=== PATIENT | male | born 1945 | race Caucasian/White ===

== ENCOUNTER 2016-08-13 10:00 | Emergency (ER) | payer MEDICARE, BC ==
[2016-08-13 10:04] VITALS: BP 146/86
--- NOTE | 2016-08-13 10:20 | ER Document Report ---
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 IN LAST 30 DAYS: No - Related Data Allergies/Adverse Reactions: No Known Allergies Allergy (Verified 05/24/14 07:53) Past Medical History - General Information source: Patient - Social History Smoking Status: Never Smoker Cigarette use (# per day): No Family History: Reviewed & Not Pertinent Patient has suicidal ideation: No Patient has homicidal ideation: No - Past Medical History Cardiac Medical History: Reports: Hx Hypertension Renal/ Medical History: Reports: Hx Kidney Stones. Denies: Hx Peritoneal Dialysis GI Medical History: Reports: Hx Gastroesophageal Reflux Disease Past Surgical History: Reports: Hx Abdominal Surgery - umbilical hernia - Immunizations Hx Diphtheria, Pertussis, Tetanus Vaccination: Yes Review of Systems - Review of Systems Constitutional: No symptoms reported EENT: No symptoms reported Cardiovascular: No symptoms reported Respiratory: No symptoms reported Gastrointestinal: No symptoms reported Genitourinary: No symptoms reported Male Genitourinary: No symptoms reported Musculoskeletal: No symptoms reported Skin: No symptoms reported Hematologic/Lymphatic: No symptoms reported Neurological/Psychological: No symptoms reported Physical Exam - Vital signs Vitals: Temp Pulse Resp BP Pulse Ox 97.8 F 63 16 146/86 H 98 08/13/16 10:02 08/13/16 10:02 08/13/16 10:02 08/13/16 10:02 08/13/16 10:02 Interpretation: Normal - General General appearance: Appears well, Alert - HEENT Head: Normocephalic, Atraumatic Eyes: Normal Pupils: PERRL Ears: Pinna tenderness External canal: Other - Left TM erythemic and excoriated. - Respiratory Respiratory status: No respiratory distress Chest status: Nontender Breath sounds: Normal Chest palpation: Normal - Cardiovascular Rhythm: Regular Heart sounds: Normal auscultation Murmur: No - Abdominal Inspection: Normal Distension: No distension Bowel sounds: Normal Tenderness: Nontender Organomegaly: No organomegaly - Back Back: Normal, Nontender - Extremities General upper extremity: Normal inspection, Nontender, Normal color, Normal ROM , Normal temperature General lower extremity: Normal inspection, Nontender, Normal color, Normal ROM , Normal temperature, Normal weight bearing. No: Von's sign - Neurological Neuro grossly intact: Yes Cognition: Normal Orientation: AAOx4 [place] Coma Scale Eye Opening: Spontaneous [place] Coma Scale Verbal: Oriented [place] Coma Scale Motor: Obeys Commands Koffi Coma Scale Total: 15 Speech: Normal Motor strength normal: LUE, RUE, LLE, RLE Sensory: Normal - Psychological Associated symptoms: Normal affect, Normal mood - Skin Skin Temperature: Warm Skin Moisture: Dry Skin Color: Normal Course - Vital Signs Vital signs: Temp Pulse Resp BP Pulse Ox 97.8 F 63 16 146/86 H 98 08/13/16 10:02 08/13/16 10:02 08/13/16 10:02 08/13/16 10:02 08/13/16 10:02 Discharge - Discharge Clinical Impression: Otitis externa Qualifiers: Otitis externa type: diffuse Laterality: left Chronicity: acute Qualified Code( s): H60.312 - Diffuse otitis externa, left ear Disposition: HOME, SELF-CARE Instructions: Use of Ear Drops ([facility]), Otitis Externa ([facility]) Additional Instructions: Otitis Externa You have otitis externa -- an infection of the outer ear canal. This can be very painful. It's sometimes called "swimmer's ear," because it often occurs after prolonged water exposure. Many things, such as earwax and dirt in the ear, can contribute to it. The usual treatment is antibiotic/antiinflammatory ear drops. Occasionally , a wick will be placed in the ear to draw in the medicine. If the infection is severe, an oral antibiotic may be prescribed. Pain medication is often needed. Avoid getting water in the ear. Outer ear infections often take longer to heal than you might expect. Some tenderness and ache in the ear may persist for about two weeks. See your physician if you fail to improve as expected. Call the doctor at once if you develop fever, increasing swelling (particularly if it makes your ear "poke out"), severe headache, stiff neck, or decreased hearing. Prescriptions: Ciprofloxacin HCl/Dexameth [Ciprodex Otic Suspension 7.5 ml Bottle] 4 drop OT BID #1 bottle
[2016-08-13] MEDS ORDERED: DEXAMETHASONE SOD PHOS INJ 10 MG/1 ML VIAL IM ONE (10:21)
[2016-08-13] MEDS ORDERED: METHYLPREDNISOLONE ACETATE INJ 40 MG/1 ML ML IM ONE (10:21)
== END 2016-08-13 10:57 | disposition home or self-care (01) ==
LOC: ER 10:00
DX: H60.312 Diffuse otitis externa, left ear (principal); H92.02 Otalgia, left ear
CPT/HCPCS: 99282; 96372; J1020; J1100

== ENCOUNTER → 2016-08-23 | Outpatient (CLI) | payer MEDICARE, BC | LOC: OD 07:09 | PROVIDERS: ATTEND Otolaryngology | DX: J06.9 Acute upper respiratory infection, unspecified (principal) | CPT/HCPCS: 36415; 85652 ==

== ENCOUNTER → 2017-02-15 | Outpatient (CLI) | payer MEDICARE, BC ==
[2017-02-15 08:59] LABS: ABSOLUTE BASOPHILS # (AUTO) 0.1 10^3/uL (0.0-0.2); ABSOLUTE EOSINOPHILS # (AUTO) 0.2 10^3/uL (0.0-0.6); ABSOLUTE LYMPHOCYTES (AUTO) 1.9 10^3/uL (0.5-4.7); ABSOLUTE MONOCYTES (AUTO) 0.7 10^3/uL (0.1-1.4); ABSOLUTE NEUT (AUTO) 4.5 10^3/uL (1.7-8.2); BASOPHILS % (AUTO) 0.7 % (0-2); EOSINOPHILS % (AUTO) 2.5 % (0-6); HEMOGLOBIN 15.3 g/dL (13.5-17.0); HGB HCT DIFFERENCE 0.9; LYMPHOCYTES % (AUTO) 25.5 % (13-45); MEAN CORPUSCULAR HEMOGLOBIN 29.1 pg (27.0-33.4); MEAN CORPUSCULAR HGB CONC 34.1 g/dL (32.0-36.0); MEAN CORPUSCULAR VOLUME 85 fl (80-97); MONOCYTES % (AUTO) 9.9 % (3-13); RED BLOOD COUNT 5.27 10^6/uL (4.35-5.55); RED CELL DISTRIBUTION WIDTH 13.9 % (11.5-14.0); SEGMENTED NEUTROPHILS % (AUTO) 61.4 % (42-78); WHITE BLOOD COUNT 7.3 10^3/uL (4.0-10.5)
[2017-02-15 09:26] LABS: ALANINE AMINOTRANSFERASE 85 U/L (21-72); ALBUMIN 4.4 g/dL (3.5-5.0); ALKALINE PHOSPHATASE 45 U/L (38-126); ANION GAP 14 (5-19); ASPARTATE AMINO TRANSFERASE 39 U/L (17-59); BILIRUBIN,DIRECT 0.3 mg/dL (0.0-0.4); BILIRUBIN,TOTAL 0.6 mg/dL (0.2-1.3); BLOOD UREA NITROGEN 32 mg/dL (7-20); CARBON DIOXIDE 27 mmol/L (22-30); CHLORIDE 108 mmol/L (98-107); CHOLESTEROL 197.11 mg/dL (0-200); CREATININE RESULT 1.22 mg/dL (0.52-1.25); Direct HDL 40 mg/dL (>40); GLUCOSE 97 mg/dL (75-110); POTASSIUM 4.8 mmol/L (3.6-5.0); SODIUM 148.7 mmol/L (137-145); TOTAL PROTEIN 6.9 g/dL (6.3-8.2); TRIGLYCERIDES 140 mg/dL (<150)
[2017-02-15 09:31] LABS: CALCIUM 9.6 mg/dL (8.4-10.2)
[2017-02-15 09:37] LABS: DIRECT LDL 144 mg/dL (<100)
== END ==
LOC: OD 08:10
PROVIDERS: ATTEND Internal Medicine
DX: K21.0 Gastro-esophageal reflux disease with esophagitis (principal); E78.5 Hyperlipidemia, unspecified; R35.1 Nocturia; R53.83 Other fatigue
CPT/HCPCS: 36415; 80053; 80061; 84153; 84443; 85025

== ENCOUNTER 2017-03-30 09:02 | Emergency (ER) | payer MEDICARE, BC ==
--- NOTE | 2017-03-30 09:56 | ER Document Report ---
ED Medical Screen (RME) - General Chief Complaint: Ear Pain Stated Complaint: HEADACHE AND EARACHE Time Seen by Provider: 03/30/17 09:24 Mode of Arrival: Ambulatory Information source: Patient Notes: 71-year-old male presents to ED for complaint of excruciating headache at 1 AM this morning with a temperature of 101 pain down his neck. States he took some aspirin and was able to fall back to sleep but at 5 AM he had an excruciating headache with fever and ear pain and took Tylenol afebrile in the emergency room but he does still have a headache and pressure in the back of his neck. He states he also has left ear pain that he has had off and on for a while and his ENT told him that it might be because his bone is too close to the surface of his ear canal. He is a former smoker does not drink alcohol no use of drugs. He is alert and oriented able to speak in full sentences lungs clear to auscultation. I have greeted and performed a rapid initial assessment of this patient. A comprehensive ED assessment and evaluation of the patient, analysis of test results and completion of medical decision making process will be conducted by an additional ED providers. TRAVEL OUTSIDE OF THE [place] IN LAST 30 DAYS: No - Related Data Allergies/Adverse Reactions: No Known Allergies Allergy (Verified 08/13/16 10:54) Past Medical History - Social History Cigarette use (# per day): No Chew tobacco use (# tins/day): No Frequency of alcohol use: None Drug Abuse: None Occupation: Retired Lives with: Family Family history: Arthritis - Rheumatoid arthritis, CAD, DM, Hyperlipidemia, Hypertension. denies: CVA, Malignancy, Thyroid Disfunction - Past Medical History Cardiac Medical History: Reports: Hx Hypercholesterolemia, Hx Hypertension Pulmonary Medical History: Reports: Hx Bronchitis, Hx Pneumonia EENT Medical History: Reports: None Neurological Medical History: Reports: None Endocrine Medical History: Reports: None Renal/ Medical History: Reports: Hx Benign Prostatic Hyperplasia, Hx Kidney Stones Malignancy Medical History: Reports None GI Medical History: Reports: Hx Gastroesophageal Reflux Disease, Hx Colonoscopy , Hx Endoscopy Musculoskeltal Medical History: Reports Hx Arthritis, Reports Hx Musculoskeletal Deformity - Bursitis right hip Skin Medical History: Reports None Psychiatric Medical History: Reports: None Traumatic Medical History: Reports: None Infectious Medical History: Reports: None Past Surgical History: Reports: Hx Genitourinary Surgery - Prostate trimmed but not removed due to BPH, Hx Inguinal Hernia, Hx Nose Surgery, Other - Detached retina, varicose vein rt arm removed due to bleeding, - Immunizations Hx Diphtheria, Pertussis, Tetanus Vaccination: Yes Physical Exam - HEENT Head: Normocephalic, Atraumatic Eyes: Normal Pupils: PERRL Ears: Normal External canal: Normal Tympanic membrane: Normal Sinus: Normal Nasal: Purulent discharge, Swelling Mouth/Lips: Normal Pharynx: Post nasal drainage Neck: Normal, Other - Lower neck states he feels pressure when touched
--- NOTE | 2017-03-30 10:30 | ER Document Report ---
ED General - General Chief Complaint: Ear Pain Stated Complaint: HEADACHE AND EARACHE Time Seen by Provider: 03/30/17 09:24 Mode of Arrival: Ambulatory Information source: Patient Notes: Patient is a 71-year-old male who presents today with what he states is around 3 months of some intermittent left ear pain and headaches. He states that the headache usually follows the ear pain. He has seen his primary care physician as well as an ENT. Patient states that the headaches also seem to come on after looking at his iPad. He states that the headache is in the front and back of his head. He denies any blurry vision, temporal pain, weakness or tiredness with chewing. Patient did have a low-grade fever last night. He has not taken antipyretics in greater than 6 hours. He does state some nasal congestion but denies cough, neck pain, sore throat, rash, or dysuria. He denies any weakness or numbness. Patient currently denies any pain to his head or his ear at this time. Patient has further ENT study follow-up coming this week. TRAVEL OUTSIDE OF THE [place] IN LAST 30 DAYS: No - HPI Onset: Other - See above Onset/Duration: Gradual Quality of pain: Achy Severity: Moderate Pain Level: Denies Associated symptoms: Other - See above Exacerbated by: Other - See above Relieved by: Denies Similar symptoms previously: Yes Recently seen / treated by doctor: Yes - Related Data Allergies/Adverse Reactions: No Known Allergies Allergy (Verified 08/13/16 10:54) Past Medical History - General Information source: Patient - Social History Smoking Status: Never Smoker Cigarette use (# per day): No Chew tobacco use (# tins/day): No Smoking Education Provided: No Frequency of alcohol use: None Drug Abuse: None Occupation: Retired Lives with: Family Family History: Reviewed & Not Pertinent Patient has suicidal ideation: No Patient has homicidal ideation: No - Past Medical History Cardiac Medical History: Reports: Hx Hypercholesterolemia, Hx Hypertension Pulmonary Medical History: Reports: Hx Bronchitis, Hx Pneumonia EENT Medical History: Reports: None Neurological Medical History: Reports: None Endocrine Medical History: Reports: None Renal/ Medical History: Reports: Hx Benign Prostatic Hyperplasia, Hx Kidney Stones. Denies: Hx Peritoneal Dialysis Malignancy Medical History: Reports None GI Medical History: Reports: Hx Gastroesophageal Reflux Disease, Hx Colonoscopy , Hx Endoscopy Musculoskeltal Medical History: Reports Hx Arthritis, Reports Hx Musculoskeletal Deformity - Bursitis right hip Skin Medical History: Reports None Psychiatric Medical History: Reports: None Traumatic Medical History: Reports: None Infectious Medical History: Reports: None Past Surgical History: Reports: Hx Abdominal Surgery - umbilical hernia, Hx Genitourinary Surgery - Prostate trimmed but not removed due to BPH, Hx Inguinal Hernia, Hx Nose Surgery, Other - Detached retina, varicose vein rt arm removed due to bleeding, - Immunizations Hx Diphtheria, Pertussis, Tetanus Vaccination: Yes Review of Systems - Review of Systems Constitutional: Fever EENT: Nose congestion, Sinus pressure. denies: Eye discharge, Double vision, Nose discharge, Sinus discharge, Throat swelling, Mouth pain Cardiovascular: denies: Chest pain Respiratory: denies: Short of breath Gastrointestinal: denies: Vomiting Genitourinary: denies: Dysuria Musculoskeletal: denies: Leg swelling Skin: Other - no hives. denies: Rash Neurological/Psychological: Other - no slurred speech -: Yes All other systems reviewed and negative Physical Exam - Vital signs Notes: Reviewed vital signs and nursing note as charted by RN. CONSTITUTIONAL: Alert and oriented and responds appropriately to questions. Well -appearing; well-nourished HEAD: Normocephalic; atraumatic EYES: PERRL ENT: Normal nose; no rhinorrhea; moist mucous membranes; pharynx without lesions noted; no mastoid tenderness or swelling; no external auditory canal lesions; left tympanic membrane does have an effusion with no loss of landmarks , erythema, or bulging present. No temporal erythema or tenderness NECK: Supple without meningismus; non-tender; no cervical lymphadenopathy, no masses CARD: Regular rate and rhythm; no murmurs EXT: Normal ROM in all joints; non-tender to palpation; no edema SKIN: No acute lesions noted NEURO: CN II through XII are intact. Patient has 5 out of 5 bilateral upper and lower extremity strength with sensation intact to light touch PSYCH: The patient's mood and manner are appropriate. Grooming and personal hygiene are appropriate. Course - Re-evaluation Re-evalutation: 03/30/17 10:29 Given the history, physical, no focal neurological deficits, currently no pain, I believe acute bacterial meningitis, subarachnoid hemorrhage, temporal arteritis, acute angle-closure glaucoma, acute CVA, mastoiditis, all to be extremely unlikely. Given that the patient has never had any imaging with his chronic intermittent left ear and headache pain, I will obtain a baseline CT scan of the head. 03/30/17 11:25 CT scan as recorded. Patient still denies any pain to the head or ear at this time. Vital signs are stable. Given that the patient has had a fever last evening with a CT scan showing possibly acute sinusitis, I will treat the patient with a course of antibiotics with strict return precautions and follow- up with the primary doctor. Other CT findings appear to be chronic. Patient will be discharged home with strict return precautions and follow-up with the primary doctor and ENT. - Laboratory Result Diagrams: 03/30/17 10:00 03/30/17 10:00 Laboratory results interpreted by me: 03/30/17 10:00 WBC 12.0 H RDW 14.1 H Seg Neutrophils % 86.6 H Lymphocytes % 6.3 L Absolute Neutrophils 10.4 H Discharge - Discharge Clinical Impression: Headache Qualifiers: Headache type: unspecified Headache chronicity pattern: acute headache Intractability: not intractable Qualified Code(s): R51 - Headache Acute sinusitis Qualifiers: Sinusitis location: maxillary Recurrence: non-recurrent Qualified Code(s): J01.00 - Acute maxillary sinusitis, unspecified Condition: Good Disposition: HOME, SELF-CARE Additional Instructions: Come back immediately with any increased pain, return of fevers, weakness or numbness, blurry vision, or any other acute problems. Please follow-up with your primary care physician as we have discussed. Prescriptions: Amox Tr/Potassium Clavulanate [Augmentin 875-125 Tablet] 1 tab PO BID 10 Days tablet Levofloxacin 750 mg PO DAILY #5 tablet Referrals: STEPHANIE AQUINO MD [Primary Care Provider] - Follow up as needed
[2017-03-30 10:35] LABS: ABSOLUTE BASOPHILS # (AUTO) 0.1 10^3/uL (0.0-0.2); ABSOLUTE EOSINOPHILS # (AUTO) 0.1 10^3/uL (0.0-0.6); ABSOLUTE LYMPHOCYTES (AUTO) 0.8 10^3/uL (0.5-4.7); ABSOLUTE MONOCYTES (AUTO) 0.7 10^3/uL (0.1-1.4); ABSOLUTE NEUT (AUTO) 10.4 10^3/uL (1.7-8.2); BASOPHILS % (AUTO) 0.4 % (0-2); EOSINOPHILS % (AUTO) 1.2 % (0-6); HEMATOCRIT 44.6 % (37.9-51.0); HEMOGLOBIN 14.8 g/dL (13.5-17.0); LYMPHOCYTES % (AUTO) 6.3 % (13-45); MEAN CORPUSCULAR HEMOGLOBIN 28.4 pg (27.0-33.4); MEAN CORPUSCULAR HGB CONC 33.2 g/dL (32.0-36.0); MEAN CORPUSCULAR VOLUME 86 fl (80-97); MONOCYTES % (AUTO) 5.5 % (3-13); PLATELET COUNT 178 10^3/uL (150-450); RED BLOOD COUNT 5.22 10^6/uL (4.35-5.55); RED CELL DISTRIBUTION WIDTH 14.1 % (11.5-14.0); SEGMENTED NEUTROPHILS % (AUTO) 86.6 % (42-78); TOTAL CELLS COUNTED % (AUTO) 100 %
[2017-03-30 10:52] LABS: A TYPE INFLUENZA AG NEGATIVE (NEGATIVE); B INFLUENZA AG NEGATIVE (NEGATIVE)
[2017-03-30 10:59] LABS: ALANINE AMINOTRANSFERASE 65 U/L (21-72); ALBUMIN 4.2 g/dL (3.5-5.0); ALKALINE PHOSPHATASE 38 U/L (38-126); ANION GAP 14 (5-19); ASPARTATE AMINO TRANSFERASE 29 U/L (17-59); BILIRUBIN,DIRECT 0.2 mg/dL (0.0-0.4); BLOOD UREA NITROGEN 19 mg/dL (7-20); CALCIUM 9.6 mg/dL (8.4-10.2); CARBON DIOXIDE 25 mmol/L (22-30); CHLORIDE 105 mmol/L (98-107); GLUCOSE 90 mg/dL (75-110); POTASSIUM 4.2 mmol/L (3.6-5.0); SODIUM 143.7 mmol/L (137-145); TOTAL PROTEIN 6.6 g/dL (6.3-8.2)
--- NOTE | 2017-03-30 11:20 | RADIOLOGY REPORT (SQ) ---
EXAM DESCRIPTION: CT HEAD WITHOUT COMPLETED DATE/TIME: 03/30/2017 10:41 am REASON FOR STUDY: 39, intermittent headaches and left ear pain COMPARISON: None. TECHNIQUE: Axial images acquired through the brain without intravenous contrast. Images reviewed wi th bone, brain and subdural windows. Images stored on PACS. All CT scanners at this facility use dose modulation, iterative reconstruction, and/or weight based d osing when appropriate to reduce radiation dose to as low as reasonably achievable (ALARA). [facility]: Dose Right [facility]: CareDose [facility]: Dose Right [facility]: Teradose 4D [facility]: [employer] RADIATION DOSE: CT Rad equipment meets quality standard of care and radiation dose reduction techniq ues were employed. CTDIvol: 64.6 mGy. DLP: 1034 mGy-cm. mGy. LIMITATIONS: None. FINDINGS: VENTRICLES: Normal size and contour. CEREBRUM: There is of focal area of decreased attenuation left basal ganglion region. The possibilit y of prominent Virchow Richie space versus old infarct must be considered. Otherwise ,intracranially, no abnormal areas of increased or decreased attenuation noted. No mass effect or shift. CEREBELLUM: No masses. No hemorrhage. No alteration of density. No evidence for acute infarction. EXTRAAXIAL SPACES: No fluid collections. No masses. ORBITS AND GLOBE: No intra- or extraconal masses. Findings compatible with scleral buckle surroundin g anterior globe right eye. CALVARIUM: The internal auditory canals and mastoid processes demonstrate no abnormality. PARANASAL SINUSES: There is evidence of mucosal thickening within the maxillary antra left greater th an right with changes of fluid level in the left maxillary antrum. The possibility of acute superimp osed on chronic sinusitis must be considered. Minimal mucosal thickening in the frontal sinuses. SOFT TISSUES: No mass or hematoma. IMPRESSION: Focal area decreased attenuation right basal ganglion region. Prominent Virchow Richie s pace versus old infarct must be considered. Acute/chronic maxillary sinusitis. Chronic bilateral fr ontal sinusitis EVIDENCE OF ACUTE STROKE: NO. COMMENT: Quality ID # [id number]: Final reports with documentation of one or more dose reduction techniques (e.g., Automated exposure control, adjustment of the mA and/or kV according to patient size, use of iterative reconstruction technique) TECHNICAL DOCUMENTATION: JOB ID: [id number] [employer]- All Rights Reserved
[2017-03-30] MEDS ORDERED: LEVOFLOXACIN 750 MG TABLET PO ONE (11:35)
[2017-03-30 12:02] VITALS: BP 136/69
== END 2017-03-30 11:59 | disposition home or self-care (01) ==
LOC: ER 09:02
DX: J01.00 Acute maxillary sinusitis, unspecified (principal); I10 Essential (primary) hypertension; R51 Headache
CPT/HCPCS: 99283; 36415; 85025; 80053; 87804; 70450; A9270

== ENCOUNTER → 2018-05-06 | Outpatient (CLI) | payer MEDICARE, BC ==
[2018-05-06 10:35] LABS: ALANINE AMINOTRANSFERASE 61 U/L (21-72); ALBUMIN 4.5 g/dL (3.5-5.0); ALKALINE PHOSPHATASE 57 U/L (38-126); ASPARTATE AMINO TRANSFERASE 42 U/L (17-59); BILIRUBIN,DIRECT 0.3 mg/dL (0.0-0.4); BILIRUBIN,TOTAL 0.8 mg/dL (0.2-1.3); CHOLESTEROL 173.65 mg/dL (0-200); TOTAL PROTEIN 6.7 g/dL (6.3-8.2); TRIGLYCERIDES 189 mg/dL (<150)
[2018-05-06 10:59] LABS: DIRECT LDL 121 mg/dL (<100)
[2018-05-06 11:02] LABS: VLDL CHOLESTEROL 37.8 mg/dL (10-31)
== END ==
LOC: OD 07:16
PROVIDERS: ATTEND Internal Medicine
DX: E78.5 Hyperlipidemia, unspecified (principal); Z79.899 Other long term (current) drug therapy
CPT/HCPCS: 36415; 80061; 80076

== ENCOUNTER → 2018-05-06 | Outpatient (CLI) | payer MEDICARE, BC ==
--- NOTE | 2018-05-06 09:34 | RADIOLOGY REPORT (SQ) ---
EXAM DESCRIPTION: MRA HEAD WITHOUT COMPLETED DATE/TIME: 05/06/2018 8:51 am REASON FOR STUDY: BRAIN ANEURYSM, NON RUPTURED (I67.1) I67.1 CEREBRAL ANEURYSM, NONRUPTURED COMPARISON: None. TECHNIQUE: Axial 3-D momm-bg-cbrwry acquisition imaging performed through the brain in the area of t he [place]. Images reformatted using 3-D MIPS. LIMITATIONS: None. FINDINGS: SOURCE IMAGES: No unexpected findings on source images. No large masses. 3-D MIP: The distal left vertebral artery is not visualized. There is incidental origin of the right and left posterior cerebral artery. No aneurysm. No occlusions. No significant stenosis. OTHER: No other significant finding. IMPRESSION: THE DISTAL LEFT VERTEBRAL ARTERY IS NOT VISUALIZED. THIS MAY BE DUE TO OCCLUSION OR A S MALL VESSEL. IF THERE IS CLINICAL CONCERN, FOLLOW-UP MRA OF THE NECK MAY BE CONSIDERED. OTHERWISE U NREMARKABLE MRA OF THE [place]. TECHNICAL DOCUMENTATION: JOB ID: [id number] [employer]- All Rights Reserved Reading location - IP/workstation name: [email or web address]
== END ==
LOC: RAD 07:48
PROVIDERS: ATTEND Internal Medicine
DX: I67.1 Cerebral aneurysm, nonruptured (principal)
CPT/HCPCS: 70544

== ENCOUNTER → 2018-05-27 | Outpatient (CLI) | payer MEDICARE, BC ==
--- NOTE | 2018-05-27 09:52 | RADIOLOGY REPORT (SQ) ---
EXAM DESCRIPTION: MRA NECK WITHOUT COMPLETED DATE/TIME: 05/27/2018 8:52 am REASON FOR STUDY: VERTEBRAL ARTERY OCCLUSION, LEFT SIDE (I65.02) I65.09 OCCLUSION AND STENOSIS OF U NSPECIFIED VERTEBRAL ARTER I65.02 OCCLUSION AND STENOSIS OF LEFT VERTEBRAL ARTERY COMPARISON: MRA exam [place] 05/06/2018 CT angio neck 09/10/2012 CT brain 03/30/2017 TECHNIQUE: Axial 2-D volume acquisition imaging through the extracranial carotid and vertebral arter ies with reformatting using 3-D MIPS. LIMITATIONS: None. FINDINGS: Noncontrast MRA of the neck was performed including 2D and 3D twev-ye-osflat imaging. Melba rce data and maximum intensity projected images were reviewed and saved to pac's. Prior CT soft tiss ue neck 09/10/2012 and [place] MRA 10/17/1918 were also reviewed. The right vertebral artery is small throughout its course in the neck, and primarily ends in the righ t PICA at the skullbase. This is unchanged from the CT soft tissue neck 09/10/2012. This correlates with [place] imaging from 05/06/2018. Currently, no MR evidence for right vertebral artery d issection is present. Left vertebral artery is dominant, widely patent, providing in flow into the basilar artery. No left vertebral artery dissection. The bilateral common carotid artery, bilateral carotid bifurcations, and bilateral cervical internal carotid arteries are normal. IMPRESSION: NO SIGNIFICANT STENOSIS. COMMENT: Quality ID #[id number]: Measurements of distal internal carotid diameter were used as the denomin ator for stenosis measurement. TECHNICAL DOCUMENTATION: JOB ID: [id number] [email or web address]- All Rights Reserved Reading location - IP/workstation name: [email or web address]-
== END ==
LOC: RAD 08:00
PROVIDERS: ATTEND Internal Medicine
DX: I65.02 Occlusion and stenosis of left vertebral artery (principal)
CPT/HCPCS: 70547

== ENCOUNTER → 2018-07-05 | Outpatient (CLI) | payer MEDICARE, BC ==
[2018-07-05 12:28] LABS: ABSOLUTE EOSINOPHILS # (AUTO) 0.2 10^3/uL (0.0-0.6); ABSOLUTE LYMPHOCYTES (AUTO) 1.9 10^3/uL (0.5-4.7); ABSOLUTE MONOCYTES (AUTO) 0.6 10^3/uL (0.1-1.4); ABSOLUTE NEUT (AUTO) 4.6 10^3/uL (1.7-8.2); BASOPHILS % (AUTO) 0.6 % (0-2); EOSINOPHILS % (AUTO) 2.5 % (0-6); HEMATOCRIT 44.9 % (37.9-51.0); HEMOGLOBIN 15.4 g/dL (13.5-17.0); LYMPHOCYTES % (AUTO) 26.1 % (13-45); MEAN CORPUSCULAR HEMOGLOBIN 29.4 pg (27.0-33.4); MEAN CORPUSCULAR HGB CONC 34.3 g/dL (32.0-36.0); MEAN CORPUSCULAR VOLUME 86 fl (80-97); MONOCYTES % (AUTO) 7.9 % (3-13); PLATELET COUNT 181 10^3/uL (150-450); RED BLOOD COUNT 5.24 10^6/uL (4.35-5.55); RED CELL DISTRIBUTION WIDTH 13.7 % (11.5-14.0); SEGMENTED NEUTROPHILS % (AUTO) 62.9 % (42-78); TOTAL CELLS COUNTED % (AUTO) 100 %; WHITE BLOOD COUNT 7.3 10^3/uL (4.0-10.5)
[2018-07-05 12:35] LABS: ALANINE AMINOTRANSFERASE 61 U/L (21-72); ALBUMIN 4.3 g/dL (3.5-5.0); ALKALINE PHOSPHATASE 47 U/L (38-126); ANION GAP 10 (5-19); ASPARTATE AMINO TRANSFERASE 38 U/L (17-59); BILIRUBIN,DIRECT 0.3 mg/dL (0.0-0.4); BILIRUBIN,TOTAL 0.6 mg/dL (0.2-1.3); BLOOD UREA NITROGEN 25 mg/dL (7-20); CALCIUM 9.6 mg/dL (8.4-10.2); CARBON DIOXIDE 28 mmol/L (22-30); CHLORIDE 100 mmol/L (98-107); GLUCOSE 95 mg/dL (75-110); POTASSIUM 4.5 mmol/L (3.6-5.0); SODIUM 137.6 mmol/L (137-145); TOTAL PROTEIN 6.9 g/dL (6.3-8.2)
[2018-07-05 12:42] LABS: APPEARANCE,URINE CLEAR; BILIRUBIN,URINE NEGATIVE (NEGATIVE); COLOR,URINE YELLOW; GLUCOSE, URINE NEGATIVE (NEGATIVE); KETONES,URINE NEGATIVE (NEGATIVE); LEUKOCYTE ESTERASE,URINE SMALL (NEGATIVE); NITRITE,URINE NEGATIVE (NEGATIVE); PROTEIN,URINE NEGATIVE (NEGATIVE); URINE SPECIFIC GRAVITY 1.015; UROBILINOGEN,URINE NEGATIVE mg/dL (<2.0)
== END ==
LOC: OD 10:38
PROVIDERS: ATTEND Internal Medicine Nephrology
DX: I12.9 Hypertensive chronic kidney disease with stage 1 through stage 4 chronic kidney disease, or unspecified chronic kidney disease (principal); N18.2 Chronic kidney disease, stage 2 (mild); Q61.3 Polycystic kidney, unspecified
CPT/HCPCS: 36415; 80053; 81001; 85025

== ENCOUNTER → 2018-11-25 | Outpatient (CLI) | payer MEDICARE, BC ==
--- NOTE | 2018-11-25 08:49 | RADIOLOGY REPORT (SQ) ---
EXAM DESCRIPTION: U/S RETROPERITON (RENAL/AORTA) COMPLETED DATE/TIME: 11/25/2018 8:29 am REASON FOR STUDY: AAA (I71.4) I71.4 ABDOMINAL AORTIC ANEURYSM, WITHOUT RUPTURE COMPARISON: CT dated 05/24/2014 TECHNIQUE: Static and dynamic grayscale images acquired of the aorta and stored on PACs. Selected co junior Doppler and spectral images recorded. LIMITATIONS: None. FINDINGS: AORTIC CALIBER MAXIMAL PROXIMAL: 3.6 cm. MID: 2.9 cm. DISTAL: 1.8 cm. ILIAC DIAMETER RIGHT: 1.4 cm. LEFT: 1.2 cm. OTHER: No other significant finding. IMPRESSION: 3.6 cm infrarenal abdominal aortic aneurysm. This was measured at 3.[address] COMMENT: Aortic aneurysm imaging followup: 3.5-3.9 cm Every 12 months *Based upon the Society for Vascular Surgery Guidelines: J Vasc Surg. 2009 Oct;50(4 Suppl):S2-49 *For aortas of maximum diameter of 2.6-2.9 cm meeting the criteria for AAA (?1.5 x proximal normal se gment) TECHNICAL DOCUMENTATION: JOB ID: [id number] [employer]- All Rights Reserved Reading location - IP/workstation name: [email or web address]
== END ==
LOC: RAD 07:42
PROVIDERS: ATTEND Surgery
DX: I71.4 Abdominal aortic aneurysm, without rupture (principal)
CPT/HCPCS: 76770

== ENCOUNTER → 2018-12-29 | Outpatient (CLI) | payer MEDICARE, BC ==
[2018-12-29 08:44] LABS: HEMATOCRIT 45.3 % (37.9-51.0); HEMOGLOBIN 15.5 g/dL (13.5-17.0); MEAN CORPUSCULAR HEMOGLOBIN 29.3 pg (27.0-33.4); MEAN CORPUSCULAR HGB CONC 34.1 g/dL (32.0-36.0); MEAN CORPUSCULAR VOLUME 86 fl (80-97); PLATELET COUNT 175 10^3/uL (150-450); RED BLOOD COUNT 5.27 10^6/uL (4.35-5.55); RED CELL DISTRIBUTION WIDTH 13.6 % (11.5-14.0); WHITE BLOOD COUNT 7.5 10^3/uL (4.0-10.5)
[2018-12-29 08:55] LABS: APPEARANCE,URINE SLIGHTLY-CLOUDY; BILIRUBIN,URINE NEGATIVE (NEGATIVE); COLOR,URINE YELLOW; GLUCOSE, URINE NEGATIVE (NEGATIVE); KETONES,URINE NEGATIVE (NEGATIVE); LEUKOCYTE ESTERASE,URINE SMALL (NEGATIVE); NITRITE,URINE POSITIVE (NEGATIVE); PROTEIN,URINE NEGATIVE (NEGATIVE); URINE SPECIFIC GRAVITY 1.018; UROBILINOGEN,URINE NEGATIVE mg/dL (<2.0)
[2018-12-29 09:50] LABS: ANION GAP 9 (5-19); BLOOD UREA NITROGEN 21 mg/dL (7-20); CALCIUM 9.6 mg/dL (8.4-10.2); CARBON DIOXIDE 29 mmol/L (22-30); CHLORIDE 103 mmol/L (98-107); GLUCOSE 127 mg/dL (75-110); POTASSIUM 4.4 mmol/L (3.6-5.0)
== END ==
LOC: OD 07:32
PROVIDERS: ATTEND Internal Medicine Nephrology
DX: N39.0 Urinary tract infection, site not specified (principal); Q61.3 Polycystic kidney, unspecified; I12.9 Hypertensive chronic kidney disease with stage 1 through stage 4 chronic kidney disease, or unspecified chronic kidney disease; N18.2 Chronic kidney disease, stage 2 (mild)
CPT/HCPCS: 36415; 80048; 81001; 85027; 87086

== ENCOUNTER → 2019-12-04 | Outpatient (CLI) | payer MEDICARE, BC ==
--- NOTE | 2019-12-04 12:42 | RADIOLOGY REPORT (SQ) ---
EXAM DESCRIPTION: U/S ABD AORTIC SCREENING IMAGES COMPLETED DATE/TIME: 12/04/2019 9:55 am REASON FOR STUDY: I74.4 EMBOLISM AND THROMBOSIS OF ARTERIES OF EXTREMITIES, UNSP I74.4 EMBOLISM AND THROMBOSIS OF ARTERIES OF EXTREMITIES, UN COMPARISON: Ultrasound of the abdominal aorta from 11/25/2018. TECHNIQUE: Static and dynamic grayscale images acquired of the aorta and stored on PACs. Selected co junior Doppler and spectral images recorded. LIMITATIONS: None. FINDINGS: AORTIC CALIBER MAXIMAL PROXIMAL: 2.7 cm. MID: 2.6 cm. DISTAL: 4 cm. ILIAC DIAMETER RIGHT: 2.2 cm. LEFT: 1.9 cm. OTHER: There are atheromatous plaques in the abdominal aorta and common iliac arteries. IMPRESSION: ABDOMINAL AORTIC ANEURYSM. COMMENT: Aortic aneurysm imaging followup: 4.0- 4.4 cm: Recommended followup every 12 months and vascular consultation. *Based upon the ACR White Paper in the J Am Raghav Radiol 2013;10 (10):789-794. *For aortas of maximum diameter of 2.6-2.9 cm meeting the criteria for AAA (?1.5 x proximal normal se gment) TECHNICAL DOCUMENTATION: JOB ID: [id number] [employer]- All Rights Reserved Reading location - IP/workstation name: [email or web address]
== END ==
LOC: RAD 08:48
PROVIDERS: ATTEND Internal Medicine
DX: I74.4 Embolism and thrombosis of arteries of extremities, unspecified (principal)
CPT/HCPCS: 76706